=== PATIENT | male | born 1985 | race African-American/Black ===

== ENCOUNTER 2023-12-15 09:27 | Emergency (ER) | payer SELFPAY ==
[2023-12-15] MEDS ORDERED: Acetaminophen 500 MG TAB ONE (11:46)
[2023-12-15] MEDS ORDERED: Lidocaine 1% PF 5 ML VIAL ONE ×2 (12:20)
[2023-12-15] MEDS ORDERED: Ketorolac Tromethamine 30 MG (1 mL) VIAL ONE (13:01)
== END 2023-12-15 13:09 | disposition home or self-care (01) ==
LOC: ERS 09:27
DX: L03.011 Cellulitis of right finger (principal); B34.9 Viral infection, unspecified
CPT/HCPCS: 10060; 87428; 96372; J1885